=== PATIENT | male | born 2000 | race Caucasian/White ===

== ENCOUNTER 2021-01-26 04:42 | Emergency (ER) | payer OTHER, BC ==
[~2021-01-26] VITALS: Ht 170 cm; Wt 66.2 kg
[~2021-01-26 04:42] MED LIST: ALBU8.5H4 IH; AMOX250S5 PO; HYDR118S PO; TETRACAINE LOLLIPOP PO
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
[2021-01-26 05:13] LABS: HEMATOCRIT 42 % (40-54); HEMOGLOBIN 14.7 g/dL (13.3-17.7); MEAN CORPUSCULAR HEMOGLOBIN 31 pg (25-34); MEAN CORPUSCULAR HGB CONC 35 g/dL (32-36); MEAN CORPUSCULAR VOLUME 89 fL (80-99); MEAN PLATELET VOLUME 9.7 fL (9.0-12.2); PLATELET COUNT 311 10^3/uL (130-400); WHITE BLOOD COUNT 7.6 10^3/uL (4.3-11.0)
[2021-01-26 05:24] LABS: ALBUMIN 4.5 GM/DL (3.2-4.5); POTASSIUM 3.9 MMOL/L (3.6-5.0)
[2021-01-26 05:25] LABS: CALCIUM 9.2 MG/DL (8.5-10.1)
[2021-01-26 05:28] LABS: BILIRUBIN,TOTAL 0.5 MG/DL (0.1-1.0)
[2021-01-26 05:30] LABS: CREATININE SERUM 0.78 MG/DL (0.60-1.30)
[2021-01-26 05:32] LABS: BILIRUBIN,DIRECT 0.2 MG/DL (0.0-0.3); BILIRUBIN,INDIRECT 0.3 MG/DL
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
[2021-01-26] MEDS ORDERED: HOLD METFORMIN - RECEIVED CONTRAST 20 ML VIAL IV SCH (06:00)
[2021-01-26] MEDS ORDERED: IOHEXOL 350 MG/ML 100 ML (OMNIPAQUE 350) VIAL IV ONE (06:00)
[2021-01-26] MEDS ORDERED: CATHETER FLUSH 10 ML SYR IV PRN (06:00)
[2021-01-26] MEDS ORDERED: NS 100 ML (IVPB) BAG IV ONE (06:00)
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
[2021-01-26 07:02] VITALS: BP 109/64
[2021-01-26] MEDS ORDERED: KETOROLAC 30 MG/ML VIAL IVP ONE (07:30)
== END 2021-01-26 07:46 | disposition home or self-care (01) ==
LOC: EDUNIT# 04:42 → ER 04:47
DX: S06.0X0A Concussion without loss of consciousness, initial encounter (principal); S80.12XA Contusion of left lower leg, initial encounter; R40.2410 Glasgow coma scale score 13-15, unspecified time; V89.2XXA Person injured in unspecified motor-vehicle accident, traffic, initial encounter
CPT/HCPCS: 70450; 70486; 71045; 71260; 72125; 73590; 80048; 80076; 85027; 93041; 99284; G0480; 36415; 80320